=== PATIENT | female | born 1940 | race Caucasian/White ===

== ENCOUNTER → 2016-08-11 | Outpatient (CLI) | payer OTHER, BC ==
[2015-05-17 10:29] VITALS: BP 116/55
--- NOTE | 2016-08-11 13:02 | RAD ---
HISTORY: Wheezing Study: Chest two views Comparison: None available Findings: The trachea is midline. The cardiac silhouette is unremarkable. The lungs are mildly hyperinflated but free of acute infiltrates. No pleural effusions are identified. The bony thorax is unremarkable . IMPRESSION: Lungs mildly hyperinflated but clear Reported By:
== END ==
LOC: RAD 12:12
PROVIDERS: ATTEND Internal Medicine
DX: J20.9 Acute bronchitis, unspecified (principal); R06.2 Wheezing
CPT/HCPCS: 71020

== ENCOUNTER → 2016-10-15 | Outpatient (CLI) | payer OTHER, BC ==
[2015-05-17 10:29] VITALS: BP 116/55
--- NOTE | 2016-10-17 12:00 | MG ---
HISTORY: SCREENING Comparison: Multiple priors dating back to June 24, 2012 FINDINGS: Bilateral CC and MLO projections of the right and left breast were obtained. Heterogeneously dense f ibroglandular tissue is seen to be present without significant interval change. No suspicious bart ectural distortion, mass or clustered microcalcifications can be observed to suggest malignancy. No skin thickening or nipple retraction is appreciated. No pathological lymphadenopathy can be identif ied. Benign-appearing calcifications are noted within the right and left breast. IMPRESSION: NO RADIOGRAPHIC EVIDENCE OF MALIGNANCY. ACR CATEGORY 2 - benign findings. FOLLOW-UP EXAM 1 YEAR. Diagnostic CAD was utilized and reviewed. * 0 (ZERO) - ASSESSMENT INCOMPLETE; ADDITIONAL IMAGING IS NEEDED. * 1/ (ONE) - NEGATIVE. * 2/II (TWO) - BENIGN FINDINGS. * 3/III (THREE) - PROBABLY BENIGN FINDING; SHORT INTERVAL FOLLOW-UP SUGGESTED. * 4/IV (FOUR) - SUSPICIOUS ABNORMALITY; BIOPSY SHOULD BE CONSIDERED. * 5/V (FIVE) - HIGHLY SUSPICIOUS OF MALIGNANCY; BIOPSY SHOULD BE PERFORMED. A NEGATIVE X-RAY REPORT SHOULD NOT DELAY BIOPSY IF A DOMINANT OR CLINICALLY SUSPICIOUS MASS IS PRESENT; 4 TO 8 PERCENT OF CANCERS ARE NOT IDENTIFIED BY X-RAY. A NEGA TIVE REPORT MAY REINFORCE THE CLINICAL IMPRESSION. ADENOSIS AND DENSE BREASTS MAY OBSCURE AN UNDERLY ING NEOPLASM. Reported By:
== END ==
LOC: RAD 10:28
PROVIDERS: ATTEND Nurse Practitioner Family
DX: Z12.31 Encounter for screening mammogram for malignant neoplasm of breast (principal)
CPT/HCPCS: 77067

== ENCOUNTER → 2017-02-14 | Outpatient (CLI) | payer OTHER, BC ==
[2015-05-17 10:29] VITALS: BP 116/55
[2017-02-14 20:38] LABS: BASOPHILS # (AUTO) 0.1 X10^3/uL (0.0-0.1); BASOPHILS % (AUTO) 0.7 % (0.2-1.0); EOSINOPHILS # (AUTO) 0.1 x10^3/uL (0.0-0.2); EOSINOPHILS % (AUTO) 1.2 % (0.9-2.9); HEMATOCRIT 39.2 % (36.0-47.0); HEMOGLOBIN 13.1 g/dL (12.0-16.0); LYMPHOCYTES # (AUTO) 2.2 X10^3/uL (1.3-2.9); LYMPHOCYTES % (AUTO) 19.1 % (21.0-51.0); MEAN CORPUSCULAR HGB CONC 33.4 g/dL (33.0-35.0); MEAN CORPUSCULAR VOLUME 89.9 fL (80.0-100.0); MEAN PLATELET VOLUME 7.8 fL (7.4-11.0); MONOCYTES # (AUTO) 0.9 x10^3/uL (0.3-0.8); MONOCYTES % (AUTO) 8.1 % (0.0-13.0); NEUTROPHILS # (AUTO) 8.2 x10^3/uL (2.2-4.8); NEUTROPHILS % (AUTO) 70.9 % (42.0-75.0); PLATELET COUNT 223 X10^3/uL (150.0-450.0); RED BLOOD COUNT 4.36 X10^6/uL (3.5-5.4); RED CELL DISTRIBUTION WIDTH 13.1 % (11.6-16.5); WHITE BLOOD COUNT 11.6 X10^3/uL (3.6-10.0)
[2017-02-14 20:49] LABS: ALANINE AMINOTRANSFERASE 42 Units/L (12-78); ALBUMIN 3.3 g/dL (3.4-5.0); ALKALINE PHOSPHATASE 69 Units/L (46-116); ASPARTATE AMINO TRANSFERASE 33 Units/L (15-37); BLOOD UREA NITROGEN 16 mg/dL (7-18); CALCIUM 8.6 mg/dL (8.5-10.1); CARBON DIOXIDE 30.3 mmol/L (21-32); CHLORIDE 104 mmol/L (98-107); COR CA(FOR HYPOALB) 9.2 mg/dL (8.5-10.1); CREATININE 0.98 mg/dL (0.55-1.02); SODIUM 138 mmol/L (136-145); TOTAL PROTEIN 6.8 g/dL (6.4-8.2); eGFR BLACK RACES > 60 (>60); eGFR NON BLACK RACES 59 (>60)
--- NOTE | 2017-02-15 07:25 | RAD ---
Examination: Chest, PA and lateral views History: Bronchitis, hypertension Comparison reference 08/11/2016. Findings: Continued normal heart size with clear lungs and pleural spaces. Impression: No change; no acute disease. Reported By:
== END ==
LOC: LAB 20:19
PROVIDERS: ATTEND Internal Medicine
DX: I10 Essential (primary) hypertension (principal); J40 Bronchitis, not specified as acute or chronic
CPT/HCPCS: 36415; 71020; 80053; 85025; 93005; 93010

== ENCOUNTER 2021-06-11 17:24 | Observation (INO) ==
[2021-06-11] MEDS ORDERED: ZOFRAN INJ 4 MG VIAL IVP ONE (17:34)
[2021-06-11] MEDS ORDERED: BENADRYL INJ 50 MG VIAL IVP ONE (17:34)
[2021-06-11] MEDS ORDERED: SOLU-Medrol 125 MG VIAL IVP ONE (17:34)
[2021-06-11] MEDS ORDERED: PEPCID 20 MG VIAL 20 MG in NS 50 ML IV 50 ML IV ONE (17:35)
[2021-06-11] MEDS ORDERED: NS 500 ML IV 500 ML IV ONE ×2 (17:35→17:40)
[2021-06-11] MEDS ORDERED: ZOFRAN INJ 4 MG VIAL ONE (17:40)
[2021-06-11] MEDS ORDERED: SOLU-Medrol 125 MG VIAL ONE (17:40)
[2021-06-11] MEDS ORDERED: BENADRYL INJ 50 MG VIAL ONE (17:40)
[2021-06-11] MEDS ORDERED: NS 50 ML IV 50 ML IV ONE (17:40)
--- NOTE | 2021-06-11 17:40 | DR.DING ---
HPI Time Seen Time Seen by Provider: 06/11/21 17:34 Complaint Chief Complaint Doctors Comments: 81 y/o female, brought in via EMS. Pt was treated at her physician's office with IM Rocephin about 1/2 hour prior to sudden onset of symptoms. + dyspnea, flushed, dizzy, feels throat closing. + nausea, spitting up some phlegm. No previous h/o allergic reactions, but received IM rocephin frequently for URIs. COVID-19 Coronavirus risk:travel/contact w/high risk person: No Has patient experienced Coronavirus symptoms: No Reviewed Nurses Notes Review: Yes Source History Provided: Patient and EMS Mode of Arrival Mode of Arrival: EMS PMH PMH Past Medical History: COPD and Hypertension Past Surgical History: Yes ROS Review of Systems Constitutional: No Symptoms Reported Eyes: No Symptoms Reported ENTM: Throat Swelling Respiratoy: Short of Breath Cardiovascular: No Symptoms Reported Gastrointestinal/Abdominal: No Symptoms Reported Genitourinary: No Symptoms Reported Neurological: Dizziness Musculoskeletal: No Symptoms Reported Integumentary: Rash Hematologic/Lymphatic: No Symptoms Reported Psychiatric: No Symptoms Reported All Other Systems: Reviewed and Negative PE Vital signs Vitals: Temperature 98.2 F Pulse Rate 85 Respiratory Rate 17 Blood Pressure [Left Arm] 151/76 Blood Pressure 137/70 O2 Sat by Pulse Oximetry 96 General Limitations: No Limitations General Appearance: Alert and In Distress Head Head Exam: Normal Inspection Eyes Eye exam: PERRL and EOMI ENT ENT Exam: Mucous Membranes Moist and Other (+ slight swelling of uvula, + airwat patent. ) Neck Neck Exam: Normal Inspection and Full ROM Chest Chest Inspection: Normal Inspection Respiratory Respiratory Exam: Normal Lung Sounds Bilat; negative Accessory Muscle Use and Respiratory Distress Respiratory Exam: Bilateral: Clear to Auscultation Cardiovascular Cardiovascular Exam: Regular Rate, Normal Rhythm, Tachycardia and Normal Heart Sounds Abdominal Exam Abdominal Exam: Soft; negative Tenderness Extremities Extremities Exam: Normal Inspection; negative Edema Back Back Exam: Normal Inspection Neurologic Neurological Exam: Alert, Oriented X3 and CN II-XII Intact; negative Motor Sensory Deficit Psychiatric Psychiatric Exam: Anxious Skin Skin Exam: Warm, Dry and Erythema (of face, upper thorax) COURSE Treatment Treatment: 81 y/o female brought in via EMS with probable allergic reaction to IM Rocephin. Pt given IV fluids, IV benadryl/solu-medrol/famotidine and zofran. Observed. 1855 - sleepy, resting. Good BP. Recommend overnight observation in view of her age, reaction, and IM medication probably causing her symptoms. Discussed with Dr Burton, accepts the admission. ROR Labs Reviewed Result Diagrams: 06/11/21 17:57 06/11/21 17:57 Laboratory: WBC 13.1 X10^3/uL (3.6-10.0) H 06/11/21 17:57 RBC 4.11 X10^6/uL (3.5-5.4) 06/11/21 17:57 Hgb 11.0 g/dL (12.0-16.0) L 06/11/21 17:57 Hct 33.7 % (36.0-47.0) L 06/11/21 17:57 MCV 82.0 fL (80.0-100.0) 06/11/21 17:57 MCH 26.8 pg (27.0-34.0) L 06/11/21 17:57 MCHC 32.7 g/dL (33.0-35.0) L 06/11/21 17:57 RDW 14.6 % (11.6-16.5) 06/11/21 17:57 Plt Count 242 X10^3/uL (150.0-450.0) 06/11/21 17:57 MPV 8.0 fL (7.4-11.0) 06/11/21 17:57 Neut % (Auto) 64.5 % (42.0-75.0) 06/11/21 17:57 Lymph % (Auto) 27.0 % (21.0-51.0) 06/11/21 17:57 [place] % (Auto) 8.3 % (0.0-13.0) 06/11/21 17:57 Eos % (Auto) 0.1 % (0.9-2.9) L 06/11/21 17:57 Baso % (Auto) 0.1 % (0.2-1.0) L 06/11/21 17:57 Neut # (Auto) 8.4 x10^3/uL (2.2-4.8) H 06/11/21 17:57 Lymph # (Auto) 3.5 X10^3/uL (1.3-2.9) H 06/11/21 17:57 [place] # (Auto) 1.1 x10^3/uL (0.3-0.8) H 06/11/21 17:57 Eos # (Auto) 0.0 x10^3/uL (0.0-0.2) 06/11/21 17:57 Baso # (Auto) 0.0 X10^3/uL (0.0-0.1) 06/11/21 17:57 Absolute Nucleated RBC 0.0 /100WBC 06/11/21 17:57 Sodium 137 mmol/L (136-145) 06/11/21 17:57 Corrected Sodium 138 mmol/L (136-145) 06/11/21 17:57 Potassium 3.7 mmol/L (3.5-5.1) 06/11/21 17:57 Chloride 103 mmol/L (98-107) 06/11/21 17:57 Carbon Dioxide 27.1 mmol/L (21-32) 06/11/21 17:57 BUN 19 mg/dL (7-18) H 06/11/21 17:57 Creatinine 1.02 mg/dL (0.55-1.02) 06/11/21 17:57 Est GFR (MDRD) Af Amer > 60 (>60) 06/11/21 17:57 Est GFR (MDRD) Non-Af 56 (>60) L 06/11/21 17:57 Glucose 159 mg/dL (65-99) H 06/11/21 17:57 Calcium 9.0 mg/dL (8.5-10.1) 06/11/21 17:57 Corrected Calcium 9.6 mg/dL (8.5-10.1) 06/11/21 17:57 Total Bilirubin 0.30 mg/dL (0.2-1.0) 06/11/21 17:57 AST 19 Units/L (15-37) 06/11/21 17:57 ALT 21 Units/L (12-78) 06/11/21 17:57 Alkaline Phosphatase 75 Units/L (46-116) 06/11/21 17:57 Total Protein 6.6 g/dL (6.4-8.2) 06/11/21 17:57 Albumin 3.3 g/dL (3.4-5.0) L 06/11/21 17:57 Globulin 3.3 g/dL (2.5-4.5) 06/11/21 17:57 Albumin/Globulin Ratio 1.0 Ratio (1.1-2.1) L 06/11/21 17:57 Other Results Comments: Labs acceptable. EKG Rate: 88 [place]: Normal Rhythm: NSR Block: None Hypertrophy: None ST: Normal Opioid Opioid Risk Tool Total: 0 Total Score Risk Category: Low Risk Copyright: [facility] predicting aberrant behaviors Diagnosis Discharge Problem: Allergic reaction Qualifiers: Encounter type: initial encounter Qualified Code(s): T78.40XA - Allergy, unspecified, initial encounter
[2021-06-11] MEDS ORDERED: PEPCID 20 MG VIAL ONE (17:41)
[2021-06-11 18:03] LABS: BASOPHILS % (AUTO) 0.1 % (0.2-1.0); EOSINOPHILS % (AUTO) 0.1 % (0.9-2.9); HEMATOCRIT 33.7 % (36.0-47.0); LYMPHOCYTES # (AUTO) 3.5 X10^3/uL (1.3-2.9); MEAN CORPUSCULAR HEMOGLOBIN 26.8 pg (27.0-34.0); MEAN CORPUSCULAR HGB CONC 32.7 g/dL (33.0-35.0); MONOCYTES # (AUTO) 1.1 x10^3/uL (0.3-0.8); MONOCYTES % (AUTO) 8.3 % (0.0-13.0); NEUTROPHILS # (AUTO) 8.4 x10^3/uL (2.2-4.8); NEUTROPHILS % (AUTO) 64.5 % (42.0-75.0); RED BLOOD COUNT 4.11 X10^6/uL (3.5-5.4); RED CELL DISTRIBUTION WIDTH 14.6 % (11.6-16.5); WHITE BLOOD COUNT 13.1 X10^3/uL (3.6-10.0)
[2021-06-11 18:21] LABS: ALANINE AMINOTRANSFERASE 21 Units/L (12-78); ALBUMIN 3.3 g/dL (3.4-5.0); ALKALINE PHOSPHATASE 75 Units/L (46-116); ASPARTATE AMINO TRANSFERASE 19 Units/L (15-37); BLOOD UREA NITROGEN 19 mg/dL (7-18); CARBON DIOXIDE 27.1 mmol/L (21-32); CHLORIDE 103 mmol/L (98-107); COR CA(FOR HYPOALB) 9.6 mg/dL (8.5-10.1); COR NA(FOR HYPERGLY) 138 mmol/L (136-145); CREATININE 1.02 mg/dL (0.55-1.02); SODIUM 137 mmol/L (136-145); TOTAL PROTEIN 6.6 g/dL (6.4-8.2); eGFR NON BLACK RACES 56 (>60)
[2021-06-11] MEDS ORDERED: BENADRYL INJ 50 MG VIAL IVP PRN (19:48)
[2021-06-11] MEDS: NS 1,000 ML IV 1,000 ML IV SCH (20:27)
[2021-06-11 21:12] VITALS: BMI 21.9
[2021-06-11] MEDS: SOLU-Medrol 40 MG VIAL IVP SCH (22:32)
[2021-06-12] MEDS: SOLU-Medrol 40 MG VIAL IVP SCH (05:30)
[2021-06-12 06:14] LABS: BASOPHILS % (AUTO) 0.1 % (0.2-1.0); HEMATOCRIT 32.5 % (36.0-47.0); HEMOGLOBIN 10.7 g/dL (12.0-16.0); LYMPHOCYTES # (AUTO) 0.6 X10^3/uL (1.3-2.9); LYMPHOCYTES % (AUTO) 5.7 % (21.0-51.0); MEAN CORPUSCULAR HGB CONC 32.9 g/dL (33.0-35.0); MEAN CORPUSCULAR VOLUME 82.1 fL (80.0-100.0); MEAN PLATELET VOLUME 8.7 fL (7.4-11.0); MONOCYTES # (AUTO) 0.3 x10^3/uL (0.3-0.8); MONOCYTES % (AUTO) 3.2 % (0.0-13.0); NEUTROPHILS # (AUTO) 9.6 x10^3/uL (2.2-4.8); RED BLOOD COUNT 3.96 X10^6/uL (3.5-5.4); RED CELL DISTRIBUTION WIDTH 14.7 % (11.6-16.5); WHITE BLOOD COUNT 10.5 X10^3/uL (3.6-10.0)
[2021-06-12 06:22] LABS: ALANINE AMINOTRANSFERASE 22 Units/L (12-78); ALKALINE PHOSPHATASE 69 Units/L (46-116); ASPARTATE AMINO TRANSFERASE 34 Units/L (15-37); BLOOD UREA NITROGEN 15 mg/dL (7-18); CALCIUM 8.8 mg/dL (8.5-10.1); CARBON DIOXIDE 25.3 mmol/L (21-32); CHLORIDE 104 mmol/L (98-107); COR CA(FOR HYPOALB) 9.6 mg/dL (8.5-10.1); COR NA(FOR HYPERGLY) 139 mmol/L (136-145); CREATININE 0.82 mg/dL (0.55-1.02); SODIUM 137 mmol/L (136-145); TOTAL PROTEIN 6.3 g/dL (6.4-8.2); eGFR NON BLACK RACES > 60 (>60)
[2021-06-12 07:24] LABS: BAND NEUTROPHILS % 1 % (0-10); PLATELET MORPHOLOGY COMMENT NORMAL (NORMAL)
[2021-06-12] MEDS ORDERED: PROTONIX INJ 40 MG VIAL IVP ONE (08:22)
[2021-06-12] MEDS ORDERED: PEPCID 20 MG VIAL IVP SCH (09:00)
[2021-06-12] MEDS ORDERED: PROPRANOLOL 80 MG PO SCH (09:00)
[2021-06-12] MEDS ORDERED: [UNRECOGNIZED DRUG - OTHER] PO SCH (09:00)
[2021-06-12] MEDS ORDERED: PEPCID 20 MG VIAL 20 MG in NS 50 ML IV 50 ML IV SCH (09:00)
[2021-06-12] MEDS: NS 1,000 ML IV 1,000 ML IV SCH (09:03)
[2021-06-12] MEDS ORDERED: LOVENOX INJ 40 MG SYR SC SCH (10:00)
--- NOTE | 2021-06-12 10:57 | RAD ---
HISTORYCOUGH, COPDSTUDYCHEST x-ray, 1 VIEWCOMPARISONX-ray 06/14/2020FINDINGSThe trachea is midline. The cardiac silhouette is unremarkable .Lungs appear clear. Possible mild COPD changes. No pneumothorax or pleural effusion is seen.No acute bony abnormality is seen.IMPRESSIONPossible mild COPD changes.Electronically signed by: Aiden Howell (Jun 12, 2021 10:56:39)
[2021-06-12 11:50] VITALS: BP 186/81
--- NOTE | 2021-06-21 14:50 | DR.SSS ---
Short Stay Summary - Past Medical History Past Medical History: Hypertension, COPD - Past Surgical History Surgical History: Appendectomy, Cholecystectomy, Hysterectomy, Ortho Surgery - Medications Home Medications: ceftriaxone [From Rocephin] Allergy (Verified 06/11/21 19:02) CONTINUE taking the following medications calcium carbonate-vitamin D3 [Calcium + D] 1 tab PO DAILY 06/11/21 [History] rfysyzdl-ppr-iymul acid-vit K [Multi For Her 50 Plus] 1 cap PO DAILY 06/11/21 [History] omeprazole 40 mg PO DAILY 06/11/21 [History] quinapril 40 mg PO DAILY 06/11/21 [History] zinc 50 mg PO DAILY 06/11/21 [History] New Prescriptions epinephrine [EpiPen 2-Ruben] 0.3 mg IM ONCE #1 ea 06/12/21 [Rx] famotidine 40 mg PO BID #60 tab 06/12/21 [Rx] prednisone 10 mg PO DAILY #18 tab 06/12/21 [Rx] - Family History Family Medical History: Cancer, [place], Sudden Cardiac , Hypertension - Social History Does patient currently use any type of tobacco product: No Have you used tobacco products in the last 12 months: No Does any household member use tobacco: No Alcohol Use: None Drug Use: None - Physical Exam Most Recent Vital Signs: Last Vital Signs Temp 98.2 F 06/12/21 11:49 Pulse 81 06/12/21 11:49 Resp 18 06/12/21 11:49 BP 186/81 06/12/21 11:49 Pulse Ox 95 06/12/21 11:49 - Labs Labs: Laboratory Last Values WBC 10.5 X10^3/uL (3.6-10.0) H 06/12/21 05:12 RBC 3.96 X10^6/uL (3.5-5.4) 06/12/21 05:12 Hgb 10.7 g/dL (12.0-16.0) L 06/12/21 05:12 Hct 32.5 % (36.0-47.0) L 06/12/21 05:12 MCV 82.1 fL (80.0-100.0) 06/12/21 05:12 MCH 27.0 pg (27.0-34.0) 06/12/21 05:12 MCHC 32.9 g/dL (33.0-35.0) L 06/12/21 05:12 RDW 14.7 % (11.6-16.5) 06/12/21 05:12 Plt Count 194 X10^3/uL (150.0-450.0) 06/12/21 05:12 Plt Count Comment Adequate (ADEQUATE) 06/12/21 05:12 MPV 8.7 fL (7.4-11.0) 06/12/21 05:12 Neut % (Auto) 91.0 % (42.0-75.0) H 06/12/21 05:12 Lymph % (Auto) 5.7 % (21.0-51.0) L 06/12/21 05:12 [place] % (Auto) 3.2 % (0.0-13.0) 06/12/21 05:12 Eos % (Auto) 0.0 % (0.9-2.9) L 06/12/21 05:12 Baso % (Auto) 0.1 % (0.2-1.0) L 06/12/21 05:12 Neut # (Auto) 9.6 x10^3/uL (2.2-4.8) H 06/12/21 05:12 Lymph # (Auto) 0.6 X10^3/uL (1.3-2.9) L 06/12/21 05:12 [place] # (Auto) 0.3 x10^3/uL (0.3-0.8) 06/12/21 05:12 Eos # (Auto) 0.0 x10^3/uL (0.0-0.2) 06/12/21 05:12 Baso # (Auto) 0.0 X10^3/uL (0.0-0.1) 06/12/21 05:12 Absolute Nucleated RBC 0.0 /100WBC 06/12/21 05:12 Total Counted 100 06/12/21 05:12 Neutrophils % (Manual) 93 % (39-76) H 06/12/21 05:12 Band Neutrophils % 1 % (0-10) 06/12/21 05:12 Lymphocytes % (Manual) 4 % (13-43) L 06/12/21 05:12 Monocytes % (Manual) 2 % (4-9) L 06/12/21 05:12 Plt Morphology Comment Normal (NORMAL) 06/12/21 05:12 RBC Morphology Normal (NORMAL) 06/12/21 05:12 Sodium 137 mmol/L (136-145) 06/12/21 05:12 Corrected Sodium 139 mmol/L (136-145) 06/12/21 05:12 Potassium 4.5 mmol/L (3.5-5.1) 06/12/21 05:12 Chloride 104 mmol/L (98-107) 06/12/21 05:12 Carbon Dioxide 25.3 mmol/L (21-32) 06/12/21 05:12 BUN 15 mg/dL (7-18) 06/12/21 05:12 Creatinine 0.82 mg/dL (0.55-1.02) 06/12/21 05:12 Est GFR (MDRD) Af Amer > 60 (>60) 06/12/21 05:12 Est GFR (MDRD) Non-Af > 60 (>60) 06/12/21 05:12 Glucose 174 mg/dL (65-99) H 06/12/21 05:12 POC Glucose (mg/dL) 133 mg/dL (65-99) H 06/12/21 11:01 Calcium 8.8 mg/dL (8.5-10.1) 06/12/21 05:12 Corrected Calcium 9.6 mg/dL (8.5-10.1) 06/12/21 05:12 Total Bilirubin 0.40 mg/dL (0.2-1.0) 06/12/21 05:12 AST 34 Units/L (15-37) 06/12/21 05:12 ALT 22 Units/L (12-78) 06/12/21 05:12 Alkaline Phosphatase 69 Units/L (46-116) 06/12/21 05:12 Total Protein 6.3 g/dL (6.4-8.2) L 06/12/21 05:12 Albumin 3.0 g/dL (3.4-5.0) L 06/12/21 05:12 Globulin 3.3 g/dL (2.5-4.5) 06/12/21 05:12 Albumin/Globulin Ratio 0.9 Ratio (1.1-2.1) L 06/12/21 05:12 SARS-CoV-2 (PCR) Negative (NEGATIVE) 06/11/21 19:32 - Discharge Medications Discharge Medications: Home Medication List calcium carbonate-vitamin D3 [Calcium + D] 1 tab PO DAILY 06/11/21 [History] slymynsr-wyx-cumms acid-vit K [Multi For Her 50 Plus] 1 cap PO DAILY 06/11/21 [History] omeprazole 40 mg PO DAILY 06/11/21 [History] quinapril 40 mg PO DAILY 06/11/21 [History] zinc 50 mg PO DAILY 06/11/21 [History] epinephrine [EpiPen 2-Ruben] 0.3 mg IM ONCE #1 ea 06/12/21 [Rx] famotidine 40 mg PO BID #60 tab 06/12/21 [Rx] prednisone 10 mg PO DAILY #18 tab 06/12/21 [Rx] Prescriptions: epinephrine [EpiPen 2-Ruben] ALTAGRACIA,MARCELA famotidine ALTAGRACIA,MARCELA prednisone ALTAGRACIA,MARCELA - Allergies Allergies/Adverse Reactions: Allergies Allergy/AdvReac Type Severity Reaction Status Date / Time ceftriaxone [From Rocephin] Allergy Verified 06/11/21 19:02
== END 2021-06-12 13:15 | disposition home or self-care (01) ==
LOC: MED/SURG 17:24 → ER 17:24 → MED/SURG 19:54
PROVIDERS: ADMIT Internal Medicine; ATTEND Internal Medicine